=== PATIENT | female | born 1990 | race Caucasian/White ===

== ENCOUNTER 2024-05-22 18:46 | Emergency (ER) | payer BC, SELFPAY ==
[2024-05-22 18:48] VITALS: BP 91/72
[2024-05-22 20:20] VITALS: BMI 33.6
--- NOTE | 2024-05-22 20:20 | ED.GENMED ---
History of Present Illness
General
Chief Complaint: Abdominal Pain
Source: patient
Exam Limitations: none
Time Seen by Provider: 05/22/24 20:02
Nursing documentation reviewed up to this point in time: agreed with
History of Present Illness
History of Present Illness:
Patient is a 33-year-old female brought by for evaluation of abdominal pain. Patient started with abdominal pain at 1 PM after eating lunch. She did not feel well this morning when she woke up however. She was nauseous. With this
abdominal pain she does feel nauseous. She reports he is mildly constipated today but did move her bowels. She reports this feels different and abdominal pain the past. She was seen here JulySeptember 2023 all with complaints
abdominal pain/some constipation. She does admit to having a lot of reflux last week. She is never been evaluated by GI.
Past History
Past History
ED Past Medical History: Psychiatric (Depression. ) and Other ('gi issues', IUD)
ED Past Surgical History: None
Social History
Tobacco: Non-smoker
Alcohol: None
Drug: None
Personal:
Living: with family
Employment: Not employed
Family History
Family History: Other
Phy Exam
General Physical Exam
General Presentation: no apparent distress
General age: appears stated age
General Skin: warm and dry
General Habitus: normal
General Mental: alert
General Hydration: appears well hydrated
Gastrointestinal Exam
Gastrointestinal Exam: soft and other (mild epiastric tenderness no lower abd tenderness )
Neurological Exam
Neurological Exam: alert and oriented x3
Musculoskeletal Exam
Musculoskeletal Exam: full ROM
Skin Exam
Skin Exam: normal color and warm/dry
Psychiatric Exam
Psychiatric Exam: normal mood/affect
Course
Orders/Labs/Results
Orders:
Orders
05/22/24 18:52
Electrocardiogram (*1) Urgent
Reason for Study: Vertigo / Dizzy
EKG- Treatment ONCE
05/22/24 20:22
Mag Hydrox/Al Hydrox/Simeth [Maalox] 30 ml Phenobarb/Hyoscy/Atropine/Scop [] 10 ml PO NOW
05/22/24 20:25
Famotidine [Pepcid] 20 mg IV NOW STA
05/22/24 20:27
US Abdomen Complete/Upper Urgent
Comment:
Reason For Exam: upper abd pain
05/22/24 20:37
Test Result ONCE
05/22/24 20:39
Complete Blood Count/With Diff Urgent
Comprehensive Metabolic Panel Urgent
Lipase Urgent
05/22/24 20:42
Mag Hydrox/Al Hydrox/Simeth [Maalox] 30 ml .ROUTE .STK-MED ONE
Phenobarb/Hyoscy/Atropine/Scop [] 10 ml .ROUTE .STK-MED ONE
05/22/24 23:28
Ketorolac [Toradol] 15 mg .ROUTE .STK-MED ONE
05/22/24 23:31
Ketorolac [Toradol] 15 mg IM NOW STA
05/22/24 23:32
Ketorolac [Toradol] 15 mg IV NOW STA
Abnormal Lab Results
05/22/24
20:39
WBC 12.7 H 10^3/uL
(4.8-10.8)
MPV 10.7 H fL
(7.4-10.4)
Abs Immat Gran (auto) 0.1 H 10^3/uL
(0-0.05)
Absolute Neuts (auto) 10.8 H 10^3/uL
(1.4-6.5)
Neutrophils % 85.0 H %
(42.2-75.2)
Lymphocytes % 9.4 L %
(20.5-51.1)
05/22/24 20:39
05/22/24 20:39
Vital Signs
Initial and Last Documented VS:
Initial Vital Signs
Temp Pulse Resp BP Pulse Ox
98.4 F 87 18 91/72 100
05/22/24 18:48 05/22/24 18:48 05/22/24 18:48 05/22/24 18:48 05/22/24 18:48
Last Documented Vital Signs
Temp Pulse Resp BP Pulse Ox
98.4 F 100 20 100/62 98
05/22/24 18:48 05/22/24 23:56 05/22/24 23:56 05/22/24 23:56 05/23/24 00:13
Vibration Engineer consulted with Physician
Vibration Engineer consulted with physician?: Yes
Name of Physician Consulted: Ben
MDM/Problems Addressed
Differential Diagnosis Includes:
Not limited to reflux biliary colic pancreatitis gastritis
MDM/Problems Addressed:
Patient is a 33-year-old female who presents with abdominal pain. Patient has been evaluated this ER multiple times in the past and has had multiple CAT scans and ultrasounds. She felt that this was a little different. She did have a lot of
reflux last week and complains of upper abdominal pain and pain over the umbilicus. On exam she is tender in the epigastric region. She however presents in no acute distress and is well-appearing white count minimally elevated however afebrile
normal LFTs, normal lipase and unremarkable US. will hold off on ct as pt has had 9 ct scans since 2019.Pt did receive Pepcid and GI cocktail which did help then symptoms recurred. She was given a one-time dose of Toradol and feeling much better.
Case discussed ED physician will DC with Protonix with GI follow-up. Pt with IUD in place no lower abd pain abd soft nontender. sexually active with
*Radiology
Radiology exam reviewed: radiology read reviewed
*Pulse Oximetry
Patient hypoxic: no
*Critical Care Note
Total Time (30-74mins, 75-104mins- exclusive of procedures): Not Applicable
Data Reviewed
Review of Other/Old Records Reveals: Other (Prior ED visits ultrasound and CAT scans )
ED Attending Note
-
Portions of this chart may have been created with voice recognition software.� Occasional wrong word or��sound alike� substitutions may have occurred due to the inherent limitations of voice recognition software.
Discharge Plan
Departure
Patient Disposition: Home (Routine Discharge)
Date of Disposition: 05/22/24
Time of Disposition: 23:53
Patient with high blood pressure during this ER visit?: No
Condition: Fair
Covid-19: Not Applicable
Discharge Problem:
Abdominal pain
Instructions: Abdominal Pain
Prescriptions:
New
pantoprazole [Protonix] 20 mg tablet,delayed release (DR/EC)
20 mg PO BID Qty: 28 0RF
Referrals:
Loki Jacobson MD [Family Provider] -
Nelly Dawn MD [Active] -
Activity Restrictions/Additional Instructions:
As discussed a prescription for Protonix was sent to your pharmacy take as directed twice daily. Avoid spicy foods fatty foods acidic foods /orange juice/citrus/caffeine. Follow-up with GI as soon as possible. You should receive a phone call
from the office in the next several days or if you do not please give them a call. Return if any worse symptoms.
Interventions
Interventions:
*Risk Screen - Suicide Last Done: 05/22/24 18:49
*General Assessment Last Done: 05/22/24 18:49
*Neglect/Abuse Screening Last Done: 05/22/24 18:49
ED- Fall Risk Assessment Last Done: 05/22/24 20:54
*ED COVID-19 Vaccine History Last Done: 05/22/24 18:49
*Nursing Disposition Last Done: 05/23/24 00:13
BI-Qhijdm-Egkabarulb Assessment Last Done: 05/22/24 20:54
Discharge Date and Time
Discharge Date/Time: 05/23/24 00:14
Print Language: GREEK
[2024-05-22] MEDS: MAALOX 40 PO (20:45)
[2024-05-22] MEDS: PEPCID 20 MG IV (20:46)
[2024-05-22 20:47] LABS: % Basophils 0.3 % (0-2); % Eosinophils 0.2 % (0-6); % Immature Granulocytes 0.5 % (0-0.5); % Lymphocytes 9.4 % (20.5-51.1); % Monocytes 4.6 % (1.7-9.3); Absolute Immature Granulocytes 0.1 10^3/uL (0-0.05); Absolute Lymphocytes 1.2 10^3/uL (1.2-3.4); Absolute Monocytes 0.6 10^3/uL (0.1-0.6); Absolute Neutrophils 10.8 10^3/uL (1.4-6.5); Hematocrit 38.7 % (37.0-47.0); Hemoglobin 13.2 g/dL (12.0-16.0); Mean Corp Hgb Conc. 34.1 g/dL (33.0-37.0); Mean Corpuscular Hgb 29.7 pg (27.0-31.0); Mean Corpuscular Volume 87.2 fL (81.0-99.0); Mean Platelet Volume 10.7 fL (7.4-10.4); Nucleated Red Blood Cells % 0 %; Platelet Count 270 10^3/uL (130-400); Red Blood Cell Count 4.44 10^6/uL (4.20-5.40); Red Cell Dist. Width 13.9 % (11.5-14.5); White Blood Cell Count 12.7 10^3/uL (4.8-10.8)
[2024-05-22 20:54] VITALS: BP 106/68
[2024-05-22 21:07] LABS: ALT (SGPT) 13 U/L (0-35); AST (SGOT) 21 U/L (14-36); Albumin 4.7 g/dl (3.5-5.0); Alkaline Phosphatase 79 U/L (38-126); Blood Urea Nitrogen 13 mg/dl (7-17); Calcium 9.9 mg/dl (8.4-10.2); Carbon Dioxide 26 mmol/L (22-30); Chloride 103 mmol/L (98-107); Estimated Creatinine Clearance 105 ml/min; Glucose 99 mg/dl (70-99); Lipase 76 U/L (23-300); Potassium 4.7 mmol/L (3.5-5.1); Sodium 137 mmol/L (135-145); Total Bilirubin 0.6 mg/dl (0.2-1.3); Total Protein 7.6 g/dl (6.3-8.2); eGFR > 60.00
[2024-05-22 22:20] VITALS: BP 105/58
[2024-05-22 23:29] VITALS: BP 98/65
[2024-05-22] MEDS: TORADOL 15 MG IV (23:40)
[2024-05-22 23:56] VITALS: BP 100/62
== END 2024-05-23 00:14 | disposition home or self-care (01) ==
LOC: EMR 18:46
PROVIDERS: Nurse Practitioner; EMERGENCY PHYSICIAN Student in an Organized Health Care Education/Training Program; FAMILY PHYSICIAN Family Medicine
DX: R10.12 Left upper quadrant pain (principal); R11.0 Nausea; K59.00 Constipation, unspecified; Z97.5 Presence of (intrauterine) contraceptive device; F32.A Depression, unspecified
CPT/HCPCS: 99284; 96374; 96375; 76700; 80053; 83690; 85025; 93005

== ENCOUNTER 2024-07-20 04:16 | Emergency (ER) | payer BC, SELFPAY ==
[2024-07-20] VITALS (7 sets, daily range): BP systolic 89–109; BP diastolic 52–78
--- NOTE | 2024-07-20 05:11 | ED.GENMED ---
History of Present Illness
<Remington Mendez, DO - Last Filed: 07/25/24 06:03>
General
Chief Complaint: Abdominal Pain
Source: patient
Exam Limitations: none
Time Seen by Provider: 07/20/24 05:11
History of Present Illness
History of Present Illness:
See MDM
Past History
<Remington Mendez, DO - Last Filed: 07/25/24 06:03>
Past History
ED Past Medical History: Psychiatric (Depression. ) and Other ('gi issues', IUD)
ED Past Surgical History: None
Social History
Tobacco: Non-smoker
Alcohol: None
Drug: None
Personal:
Living: with family
Employment: Not employed
Family History
Family History: Other
Phy Exam
<Remington Mendez, DO - Last Filed: 07/25/24 06:03>
Physical Exam
Physical Exam:
See MDM
Course
<Remington Mendez, DO - Last Filed: 07/25/24 06:03>
Orders/Labs/Results
Orders:
Orders
07/20/24 05:00
Test Result ONCE
07/20/24 05:07
Complete Blood Count/With Diff Urgent
Comprehensive Metabolic Panel Urgent
HCG, Serum Qualitative Screen Urgent
Lipase Urgent
07/20/24 05:10
Ketorolac [Toradol] 30 mg .ROUTE .STK-MED ONE
Ondansetron Injectable [Zofran] 4 mg .ROUTE .STK-MED ONE
07/20/24 05:11
US Abdomen Complete/Upper Urgent
Comment:
Reason For Exam: RUQ pain
07/20/24 05:15
Ondansetron Injectable [Zofran] 4 mg IV NOW STA
07/20/24 05:17
Ketorolac [Toradol] 30 mg IV NOW STA
07/20/24 05:18
0.9% Sodium Chloride 1000 ml [Nss] 1,000 ml IV BOLUS
07/20/24 07:53
Morphine Sulfate 4 mg IV NOW STA
07/20/24 08:09
CT Abd/pelvis W Iv Cont Urgent
Comment:
Reason For Exam: periumbilical pain
Pantoprazole [Protonix IV] 40 mg IV NOW STA
Abnormal Lab Results
07/20/24
05:07
WBC 11.9 H 10^3/uL
(4.8-10.8)
MPV 11.5 H fL
(7.4-10.4)
Abs Immat Gran (auto) 0.1 H 10^3/uL
(0-0.05)
Absolute Neuts (auto) 9.4 H 10^3/uL
(1.4-6.5)
Neutrophils % 78.6 H %
(42.2-75.2)
Lymphocytes % 15.6 L %
(20.5-51.1)
Glucose 105 H mg/dl
(70-99)
Albumin 5.1 H g/dl
(3.5-5.0)
07/20/24 05:07
07/20/24 05:07
Vital Signs
Initial and Last Documented VS:
Initial Vital Signs
Temp Pulse Resp BP Pulse Ox
98.8 F 82 20 89/62 100
07/20/24 04:30 07/20/24 04:30 07/20/24 04:30 07/20/24 04:30 07/20/24 04:30
Last Documented Vital Signs
Temp Pulse Resp BP Pulse Ox
98.8 F 77 16 103/65 98
07/20/24 04:30 07/20/24 08:00 07/20/24 08:00 07/20/24 08:00 07/20/24 08:00
<Kam Ness, DO - Last Filed: 07/20/24 10:12>
Orders/Labs/Results
Orders:
Orders
07/20/24 05:00
Test Result ONCE
07/20/24 05:07
Complete Blood Count/With Diff Urgent
Comprehensive Metabolic Panel Urgent
HCG, Serum Qualitative Screen Urgent
Lipase Urgent
07/20/24 05:10
Ketorolac [Toradol] 30 mg .ROUTE .STK-MED ONE
Ondansetron Injectable [Zofran] 4 mg .ROUTE .STK-MED ONE
07/20/24 05:11
US Abdomen Complete/Upper Urgent
Comment:
Reason For Exam: RUQ pain
07/20/24 05:15
Ondansetron Injectable [Zofran] 4 mg IV NOW STA
07/20/24 05:17
Ketorolac [Toradol] 30 mg IV NOW STA
07/20/24 05:18
0.9% Sodium Chloride 1000 ml [Nss] 1,000 ml IV BOLUS
07/20/24 07:53
Morphine Sulfate 4 mg IV NOW STA
07/20/24 08:09
CT Abd/pelvis W Iv Cont Urgent
Comment:
Reason For Exam: periumbilical pain
Pantoprazole [Protonix IV] 40 mg IV NOW STA
Abnormal Lab Results
07/20/24
05:07
WBC 11.9 H 10^3/uL
(4.8-10.8)
MPV 11.5 H fL
(7.4-10.4)
Abs Immat Gran (auto) 0.1 H 10^3/uL
(0-0.05)
Absolute Neuts (auto) 9.4 H 10^3/uL
(1.4-6.5)
Neutrophils % 78.6 H %
(42.2-75.2)
Lymphocytes % 15.6 L %
(20.5-51.1)
Glucose 105 H mg/dl
(70-99)
Albumin 5.1 H g/dl
(3.5-5.0)
07/20/24 05:07
07/20/24 05:07
Vital Signs
Initial and Last Documented VS:
Initial Vital Signs
Temp Pulse Resp BP Pulse Ox
98.8 F 82 20 89/62 100
07/20/24 04:30 07/20/24 04:30 07/20/24 04:30 07/20/24 04:30 07/20/24 04:30
Last Documented Vital Signs
Temp Pulse Resp BP Pulse Ox
98.8 F 77 16 103/65 98
07/20/24 04:30 07/20/24 08:00 07/20/24 08:00 07/20/24 08:00 07/20/24 08:00
<Remington Mendez, DO - Last Filed: 07/25/24 06:03>
MDM/Problems Addressed
Differential Diagnosis Includes:
HPI and MDM Narrative:
33-year-old female presenting for evaluation of right upper quadrant pain. On exam, patient does have point tenderness to right upper quadrant. Given location of pain, will give Toradol and obtain ultrasound rule out gallbladder pathology
Physical exam
General: Uncomfortable
HEENT: protecting airway
Neck: appears supple
CV: No evidence of cyanosis
Resp: No accessory muscle use
Abd: Non-distended. Right upper quadrant tenderness
Extremities: No deformities
Neuro: alert
Psych: Normal affect
Skin: Intact
Problems Addressed including Acute and Chronic Conditions affecting care:
1. Right upper quadrant pain
Acuity: acute
Prognosis: stable
Details: Will give Toradol and obtain ultrasound
Updates
Ultrasound CT negative for acute pathology
Differential Diagnosis (but not limited to): Symptomatic cholelithiasis, acute calculus cholecystitis, gastritis
Testing considered: CT abdomen/pelvis
Drug therapy (if applicable): OTC meds, please see d/c instruction regarding Rx drugs
Amount and/or Complexity of Data Reviewed
Clinical info obtained from: Patient
External data reviewed: N/A
Labs I independently reviewed (but not limited to): elevated WBC
Radiology: The CT scan was personally and independently reviewed. In addition, official CT report reviewed.
Pulse Ox: not hypoxic
EKG independently reviewed: N/A
Erp Programmer: N/A
Critical Care: N/A
Risk of Complication:
Social Determinants of health: Good social support
Discussed with other providers: N/A
Escalation of Care includes Admit/Obs: After being observed in the Emergency Department, pt stable for discharge.
Occasional wrong word or 'sound a like' substitutions may have occurred due to the inherent limitations of voice recognition software. Read the chart carefully and recognize, using context, where substitutions have occurred.
<Remington Mendez, DO - Last Filed: 07/25/24 06:03>
*Critical Care Note
Total Time (30-74mins, 75-104mins- exclusive of procedures): Not Applicable
<Kam Ness, DO - Last Filed: 07/20/24 10:12>
Update Note
Update Note:
Patient reassessed and did have some persistent epigastric pain. Ultrasound negative so proceeded with CT. CT negative. Patient appears well. Will treat with PPI, bland diet and outpatient follow-up.
ED Attending Note
<Remington Mendez, DO - Last Filed: 07/25/24 06:03>
-
Portions of this chart may have been created with voice recognition software.� Occasional wrong word or��sound alike� substitutions may have occurred due to the inherent limitations of voice recognition software.
Discharge Plan
Departure
Patient Disposition: Home (Routine Discharge)
Date of Disposition: 07/20/24
Time of Disposition: 10:04
Patient with high blood pressure during this ER visit?: No
Discharge Problem:
Abdominal pain
Instructions: Abdominal Pain
Prescriptions:
New
pantoprazole [Protonix] 40 mg tablet,delayed release (DR/EC)
40 mg PO DAILY Qty: 30 0RF
Rx Instructions:
Please take 30 minutes prior to eating or drinking anything in the morning.
sucralfate [Carafate] 100 mg/mL suspension
10 ml PO QID Qty: 200 0RF
No Action
pantoprazole [Protonix] 20 mg tablet,delayed release (DR/EC)
20 mg PO BID Qty: 28 0RF
Referrals:
Loki Jacobson MD [Family Provider] -
Activity Restrictions/Additional Instructions:
Please stick to a bland diet drink plenty fluids. Return immediately for fevers, intractable vomiting, worsening pain or any other concerns. Please see your doctor in the next 3 days for follow-up and reevaluation.
Interventions
Interventions:
*Risk Screen - Suicide Last Done: 07/20/24 05:26
*General Assessment Last Done: 07/20/24 05:26
*Neglect/Abuse Screening Last Done: 07/20/24 05:26
ED- Fall Risk Assessment Last Done: 07/20/24 05:26
*ED COVID-19 Vaccine History Last Done: 07/20/24 05:26
*Nursing Disposition Last Done: 07/20/24 10:52
DN-Mdbocz-Qksarjrxah Assessment Last Done: 07/20/24 05:26
Discharge Date and Time
Discharge Date/Time: 07/20/24 10:53
Print Language: [place]LAND[place]
[2024-07-20 05:16] LABS: % Basophils 0.3 % (0-2); % Eosinophils 0.6 % (0-6); % Immature Granulocytes 0.5 % (0-0.5); % Lymphocytes 15.6 % (20.5-51.1); % Monocytes 4.4 % (1.7-9.3); % Neutrophils 78.6 % (42.2-75.2); Absolute Eosinophils 0.1 10^3/uL (0-0.7); Absolute Immature Granulocytes 0.1 10^3/uL (0-0.05); Absolute Lymphocytes 1.9 10^3/uL (1.2-3.4); Absolute Monocytes 0.5 10^3/uL (0.1-0.6); Absolute Neutrophils 9.4 10^3/uL (1.4-6.5); Hematocrit 41.4 % (37.0-47.0); Hemoglobin 13.9 g/dL (12.0-16.0); Mean Corp Hgb Conc. 33.6 g/dL (33.0-37.0); Mean Corpuscular Hgb 28.5 pg (27.0-31.0); Mean Platelet Volume 11.5 fL (7.4-10.4); Nucleated Red Blood Cells % 0 %; Platelet Count 227 10^3/uL (130-400); Red Blood Cell Count 4.87 10^6/uL (4.20-5.40); Red Cell Dist. Width 14.1 % (11.5-14.5); White Blood Cell Count 11.9 10^3/uL (4.8-10.8)
[2024-07-20] MEDS: ZOFRAN 4 MG IV (05:16)
[2024-07-20] MEDS: TORADOL 30 MG IV (05:17)
[2024-07-20] MEDS: NSS 1000 IV (05:18)
[2024-07-20 05:41] LABS: HCG, Serum Qualitative Screen Negative
[2024-07-20 05:57] LABS: ALT (SGPT) 16 U/L (0-35); AST (SGOT) 21 U/L (14-36); Albumin 5.1 g/dl (3.5-5.0); Alkaline Phosphatase 73 U/L (38-126); Blood Urea Nitrogen 8 mg/dl (7-17); Calcium 9.9 mg/dl (8.4-10.2); Carbon Dioxide 22 mmol/L (22-30); Chloride 102 mmol/L (98-107); Glucose 105 mg/dl (70-99); Lipase 83 U/L (23-300); Potassium 4.6 mmol/L (3.5-5.1); Sodium 142 mmol/L (135-145); Total Bilirubin 0.5 mg/dl (0.2-1.3); Total Protein 8.1 g/dl (6.3-8.2); eGFR > 60.00
[2024-07-20] MEDS: MORPHINE SULFATE 4 MG IV (08:10)
[2024-07-20] MEDS: PROTONIX IV 40 MG IV (08:48)
== END 2024-07-20 10:53 | disposition home or self-care (01) ==
LOC: EMR 04:16
PROVIDERS: Student in an Organized Health Care Education/Training Program; EMERGENCY PHYSICIAN Emergency Medicine; FAMILY PHYSICIAN Family Medicine
DX: R10.9 Unspecified abdominal pain (principal)
CPT/HCPCS: 99284; 96374; 96375; 96361; 74177; 76700; 80053; 83690; 84703; 85025; Q9967

== ENCOUNTER 2024-08-18 17:30 | Emergency (ER) | payer BC, SELFPAY ==
[2024-08-18 17:33] VITALS: BP 100/65
--- NOTE | 2024-08-18 18:28 | ED.GENMED ---
History of Present Illness
General
Chief Complaint: Abdominal Pain
Source: patient
Exam Limitations: none
Time Seen by Provider: 08/18/24 18:07
History of Present Illness
History of Present Illness:
34-year-old female presents complaining of right sided abdominal pain. Started this morning but was made worse after eating dinner today. She had similar pain about 3 weeks ago when she was seen in this emergency room. She had an ultrasound of
her abdomen as well as CT and the workup was negative. She notes slight nausea no vomiting. No flank pain or urinary symptoms. No fever. The pain is fairly constant to the right mid abdomen
Past History
Past History
ED Past Medical History: Psychiatric (Depression. ) and Other ('gi issues', IUD)
ED Past Surgical History: None
Social History
Tobacco: Non-smoker
Alcohol: None
Drug: None
Personal:
Living: with family
Employment: Not employed
Family History
Family History: Other
Phy Exam
Physical Exam
Physical Exam:
General: well appearing male, NAD
HEENT: Nc/AT
heart: RRR
Lungs; CTA
ABd: soft, tender to right mid abdomen, no guarding
Ext: no cyanosis or edema.
Course
Orders/Labs/Results
Orders:
Orders
08/18/24 18:23
0.9% Sodium Chloride 1000 ml [Nss] 1,000 ml IV BOLUS
Ketorolac [Toradol] 15 mg IV NOW STA
Ondansetron Injectable [Zofran] 4 mg IV NOW STA
08/18/24 18:24
Test Result ONCE
08/18/24 18:26
Complete Blood Count/With Diff Urgent
Comprehensive Metabolic Panel Urgent
HCG, Serum Qualitative Screen Urgent
Lipase Urgent
08/18/24 18:41
Famotidine [Pepcid] 20 mg IV NOW STA
08/18/24 19:25
Urinalysis Reflex To Culture Urgent
Date Specimen was Collected: 08/18/24
Time Specimen was Collected: 19:19
Urine Microscopic Reflex Cult Urgent
Urine Culture Urgent
BELLO Source: U
Specimen Description:
Date Specimen was Collected: 08/18/24
Time Specimen was Collected: 19:19
08/18/24 20:38
Mag Hydrox/Al Hydrox/Simeth [Maalox] 30 ml Phenobarb/Hyoscy/Atropine/Scop [] 10 ml Viscous Lidocaine 2% [Xylocaine Viscous Cup] 10 ml PO NOW
08/18/24 20:39
Phenobarb/Hyoscy/Atropine/Scop [] 10 ml .ROUTE .STK-MED ONE
08/18/24 20:40
Mag Hydrox/Al Hydrox/Simeth [Maalox] 30 ml .ROUTE .STK-MED ONE
Viscous Lidocaine 2% [Xylocaine Viscous Cup] 15 ml .ROUTE .STK-MED ONE
Abnormal Lab Results
08/18/24 08/18/24
18:26 19:25
WBC 12.4 H 10^3/uL
(4.8-10.8)
MPV 10.9 H fL
(7.4-10.4)
Absolute Neuts (auto) 10.3 H 10^3/uL
(1.4-6.5)
Neutrophils % 83.2 H %
(42.2-75.2)
Lymphocytes % 11.3 L %
(20.5-51.1)
Ur Occult Blood Reflex Trace A
(Negative)
Leukocyte Esterase Rfl 2+ A
(Negative)
08/18/24 18:26
08/18/24 18:26
Vital Signs
Initial and Last Documented VS:
Initial Vital Signs
Temp Pulse Resp BP Pulse Ox
99 F 90 22 100/65 99
08/18/24 17:33 08/18/24 17:33 08/18/24 17:33 08/18/24 17:33 08/18/24 17:33
Last Documented Vital Signs
Temp Pulse Resp BP Pulse Ox
99 F 90 22 96/66 99
08/18/24 17:33 08/18/24 17:33 08/18/24 17:33 08/18/24 20:00 08/18/24 20:00
MDM/Problems Addressed
Differential Diagnosis Includes:
Abdominal pain. Consider reflux versus constipation versus biliary colic versus renal colic.
Check labs. Hydrate and treat symptoms.
*Critical Care Note
Total Time (30-74mins, 75-104mins- exclusive of procedures): Not Applicable
Update Note
Update Note:
Patient reexamined multiple times now feeling better after GI cocktail. Reviewed her chart. She has had many CAT scans of her abdomen. I suspect reflux or IBS or constipation as a source of her pain no indication for emergent imaging at this
time. Stable for discharge. Recommended PPIs
ED Attending Note
-
Portions of this chart may have been created with voice recognition software.� Occasional wrong word or��sound alike� substitutions may have occurred due to the inherent limitations of voice recognition software.
Discharge Plan
Departure
Patient Disposition: Home (Routine Discharge)
Date of Disposition: 08/18/24
Time of Disposition: 21:21
Patient with high blood pressure during this ER visit?: No
Discharge Problem:
Abdominal pain
Instructions: Acid Reflux and GERD in Adults (DC), Abdominal Pain
Prescriptions:
No Action
pantoprazole [Protonix] 20 mg tablet,delayed release (DR/EC)
20 mg PO BID Qty: 28 0RF
pantoprazole [Protonix] 40 mg tablet,delayed release (DR/EC)
40 mg PO DAILY Qty: 30 0RF
Rx Instructions:
Please take 30 minutes prior to eating or drinking anything in the morning.
sucralfate [Carafate] 100 mg/mL suspension
10 ml PO QID Qty: 200 0RF
Referrals:
NONE,* [Family Provider] -
Activity Restrictions/Additional Instructions:
Use Prilosec [id number]. String plenty clear liquids. Return for worsening symptoms otherwise follow-up with your family doctor or GI physician
Interventions
Interventions:
*Risk Screen - Suicide Last Done: 08/18/24 17:33
*General Assessment Last Done: 08/18/24 17:33
*Neglect/Abuse Screening Last Done: 08/18/24 17:33
ED- Fall Risk Assessment Last Done: 08/18/24 18:00
*ED COVID-19 Vaccine History Last Done: 08/18/24 17:33
EH-Bsljfg-Ykbgrcqaft Assessment Last Done: 08/18/24 18:00
Discharge Date and Time
Print Language: [place]ET[place]ESE
[2024-08-18] MEDS: NSS 1000 IV (18:30)
[2024-08-18] MEDS: TORADOL 15 MG IV (18:31)
[2024-08-18] MEDS: ZOFRAN 4 MG IV (18:31)
[2024-08-18 18:37] VITALS: BP 113/78
[2024-08-18 18:47] LABS: % Basophils 0.3 % (0-2); % Eosinophils 0.4 % (0-6); % Immature Granulocytes 0.3 % (0-0.5); % Lymphocytes 11.3 % (20.5-51.1); % Monocytes 4.5 % (1.7-9.3); % Neutrophils 83.2 % (42.2-75.2); Absolute Eosinophils 0.1 10^3/uL (0-0.7); Absolute Lymphocytes 1.4 10^3/uL (1.2-3.4); Absolute Monocytes 0.6 10^3/uL (0.1-0.6); Absolute Neutrophils 10.3 10^3/uL (1.4-6.5); Hematocrit 39.2 % (37.0-47.0); Hemoglobin 13.2 g/dL (12.0-16.0); Mean Corp Hgb Conc. 33.7 g/dL (33.0-37.0); Mean Corpuscular Hgb 29.1 pg (27.0-31.0); Mean Corpuscular Volume 86.3 fL (81.0-99.0); Mean Platelet Volume 10.9 fL (7.4-10.4); Nucleated Red Blood Cells % 0 %; Platelet Count 247 10^3/uL (130-400); Red Blood Cell Count 4.54 10^6/uL (4.20-5.40); Red Cell Dist. Width 14.2 % (11.5-14.5); White Blood Cell Count 12.4 10^3/uL (4.8-10.8)
[2024-08-18] MEDS: PEPCID 20 MG IV (18:47)
[2024-08-18 19:00] VITALS: BP 111/70
[2024-08-18 19:03] LABS: HCG, Serum Qualitative Screen Negative
[2024-08-18 19:06] LABS: ALT (SGPT) 15 U/L (0-35); AST (SGOT) 19 U/L (14-36); Albumin 4.7 g/dl (3.5-5.0); Alkaline Phosphatase 67 U/L (38-126); Blood Urea Nitrogen 11 mg/dl (7-17); Calcium 9.6 mg/dl (8.4-10.2); Carbon Dioxide 28 mmol/L (22-30); Chloride 103 mmol/L (98-107); Glucose 74 mg/dl (70-99); Lipase 81 U/L (23-300); Potassium 4.1 mmol/L (3.5-5.1); Sodium 142 mmol/L (135-145); Total Bilirubin 0.2 mg/dl (0.2-1.3); Total Protein 7.5 g/dl (6.3-8.2); eGFR > 60.00
[2024-08-18 19:33] LABS: Urine Albumin Negative (Neg - Trace); Urine Bilirubin Negative (Negative); Urine Character Clear (Clear); Urine Color Yellow; Urine Glucose Negative (Negative); Urine Ketone Negative (Negative); Urine Leukocyte 2+ (Negative); Urine Nitrite Negative (Negative); Urine Occult Blood Trace (Negative); Urine Specific Gravity 1.015 (<1.030); Urine Urobilinogen Negative (Neg - 1+); Urine pH 6.5 (5.0-9.0)
[2024-08-18 19:46] LABS: Urine Squamous Cell >30 /LPF (Few)
[2024-08-18 19:47] LABS: Urine Red Blood Cell 0-2 /HPF (0-2)
[2024-08-18 20:00] VITALS: BP 96/66
[2024-08-18] MEDS: MAALOX 50 PO (20:41)
== END 2024-08-18 21:27 | disposition home or self-care (01) ==
LOC: EMR 17:30
PROVIDERS: Physician Assistant; EMERGENCY PHYSICIAN Emergency Medicine
DX: R10.9 Unspecified abdominal pain (principal)
CPT/HCPCS: 99283; 96374; 96375; 96361; 80053; 81003; 81015; 83690; 84703; 85025; 87086

== ENCOUNTER 2024-09-27 14:22 | Emergency (ER) | payer BC, SELFPAY ==
[2024-09-27 14:38] VITALS: BP 111/76
[2024-09-27 14:41] LABS: Glucose - Point of Care 82 mg/dl (70-99)
[2024-09-27 15:06] LABS: % Basophils 0.3 % (0-2); % Immature Granulocytes 0.4 % (0-0.5); % Lymphocytes 9.7 % (20.5-51.1); % Monocytes 3.4 % (1.7-9.3); % Neutrophils 86.2 % (42.2-75.2); Absolute Basophils 0.1 10^3/uL (0-0.2); Absolute Immature Granulocytes 0.1 10^3/uL (0-0.05); Absolute Lymphocytes 1.6 10^3/uL (1.2-3.4); Absolute Monocytes 0.5 10^3/uL (0.1-0.6); Absolute Neutrophils 13.8 10^3/uL (1.4-6.5); Hematocrit 38.7 % (37.0-47.0); Hemoglobin 12.9 g/dL (12.0-16.0); Mean Corp Hgb Conc. 33.3 g/dL (33.0-37.0); Mean Corpuscular Hgb 28.6 pg (27.0-31.0); Mean Corpuscular Volume 85.8 fL (81.0-99.0); Mean Platelet Volume 11.3 fL (7.4-10.4); Nucleated Red Blood Cells % 0 %; Platelet Count 255 10^3/uL (130-400); Red Blood Cell Count 4.51 10^6/uL (4.20-5.40); Red Cell Dist. Width 13.4 % (11.5-14.5); White Blood Cell Count 16.1 10^3/uL (4.8-10.8)
[2024-09-27 15:15] LABS: HCG, Serum Qualitative Screen Negative
[2024-09-27 15:20] LABS: ALT (SGPT) 17 U/L (0-35); AST (SGOT) 18 U/L (14-36); Albumin 4.5 g/dl (3.5-5.0); Alkaline Phosphatase 82 U/L (38-126); Blood Urea Nitrogen 9 mg/dl (7-17); Calcium 9.2 mg/dl (8.4-10.2); Carbon Dioxide 26 mmol/L (22-30); Chloride 100 mmol/L (98-107); Glucose 89 mg/dl (70-99); Lipase 69 U/L (23-300); Potassium 4.1 mmol/L (3.5-5.1); Sodium 133 mmol/L (135-145); Total Bilirubin 0.6 mg/dl (0.2-1.3); Total Protein 7.5 g/dl (6.3-8.2); eGFR > 60.00
--- NOTE | 2024-09-27 16:43 | ED.GENMED ---
History of Present Illness
General
Chief Complaint: Abdominal Symptoms
Source: patient
Exam Limitations: none
Time Seen by Provider: 09/27/24 16:37
History of Present Illness
History of Present Illness:
34-year-old female with history of abdominal pain presents with abdominal pain starting yesterday. Feels similar to her prior episodes of pain. She was seen here a month ago for the same. She has had multiple imaging studies of her abdomen. She
had a normal bowel movement yesterday. She denies vomiting or fever. She has yet to see a GI doctor.
Past History
Past History
ED Past Medical History: Psychiatric (Depression. ) and Other ('gi issues', IUD)
ED Past Surgical History: None
Social History
Tobacco: Non-smoker
Alcohol: None
Drug: None
Personal:
Living: with family
Employment: Not employed
Family History
Family History: Other
Phy Exam
Physical Exam
Physical Exam:
General: Well-appearing female no acute respiratory distress
HEENT: Normocephalic atraumatic heart: Regular rate and rhythm no murmurs lungs: Clear no wheeze abdomen: Soft diffusely tender no guarding rebound normal bowel sounds nondistended
Extremities: No cyanosis
Course
Orders/Labs/Results
Orders:
Orders
09/27/24 14:42
Test Result ONCE
09/27/24 14:56
Complete Blood Count/With Diff Urgent
Comprehensive Metabolic Panel Urgent
HCG, Serum Qualitative Screen Urgent
Lipase Urgent
09/27/24 16:43
Famotidine [Pepcid] 20 mg IV NOW STA
Ketorolac [Toradol] 15 mg IV NOW STA
Mag Hydrox/Al Hydrox/Simeth [Maalox] 30 ml Phenobarb/Hyoscy/Atropine/Scop [] 10 ml Viscous Lidocaine 2% [Xylocaine Viscous Cup] 10 ml PO NOW
09/27/24 16:55
Mag Hydrox/Al Hydrox/Simeth [Maalox] 30 ml .ROUTE .STK-MED ONE
Phenobarb/Hyoscy/Atropine/Scop [] 10 ml .ROUTE .STK-MED ONE
Viscous Lidocaine 2% [Xylocaine Viscous Cup] 15 ml .ROUTE .STK-MED ONE
09/27/24 18:50
Urinalysis Reflex To Culture Urgent
Date Specimen was Collected: 09/27/24
Time Specimen was Collected: 18:45
Urine Microscopic Reflex Cult Urgent
Urine Culture Urgent
BELLO Source: U
Specimen Description:
Date Specimen was Collected: 09/27/24
Time Specimen was Collected: 18:45
Abnormal Lab Results
09/27/24 09/27/24
14:56 18:50
WBC 16.1 H 10^3/uL
(4.8-10.8)
MPV 11.3 H fL
(7.4-10.4)
Abs Immat Gran (auto) 0.1 H 10^3/uL
(0-0.05)
Absolute Neuts (auto) 13.8 H 10^3/uL
(1.4-6.5)
Neutrophils % 86.2 H %
(42.2-75.2)
Lymphocytes % 9.7 L %
(20.5-51.1)
Sodium 133 L mmol/L
(135-145)
Ur Occult Blood Reflex 2+ A
(Negative)
Leukocyte Esterase Rfl 1+ A
(Negative)
Urine RBC 3-6 A /HPF
(0-2)
09/27/24 14:56
09/27/24 14:56
Vital Signs
Initial and Last Documented VS:
Initial Vital Signs
Temp Pulse Resp BP Pulse Ox
99.5 F 110 20 111/76 97
09/27/24 14:38 09/27/24 14:38 09/27/24 14:38 09/27/24 14:38 09/27/24 14:38
Last Documented Vital Signs
Temp Pulse Resp BP Pulse Ox
99.5 F 82 18 106/86 97
09/27/24 14:38 09/27/24 18:45 09/27/24 18:45 09/27/24 17:00 09/27/24 17:30
MDM/Problems Addressed
Differential Diagnosis Includes:
Recurrent abdominal pain. No localizing discomfort on exam. She has had multiple ultrasounds and CTs of her abdomen. The workups have been negative. Will try treating symptoms here.
*Critical Care Note
Total Time (30-74mins, 75-104mins- exclusive of procedures): Not Applicable
Update Note
Update Note:
Patient reexamined feeling slightly improved with medicine. Still with some lower abdominal pain. Explained to her that her white blood cell count is high which she typically is and in the setting of lower abdominal pain we can offer CAT scan for
further imaging. She has had multiple CAT scans in the past. She declined that this pain feels very similar to what she has had in the past. She will follow-up with GI. Return precautions were given.
ED Attending Note
-
Portions of this chart may have been created with voice recognition software.� Occasional wrong word or��sound alike� substitutions may have occurred due to the inherent limitations of voice recognition software.
Discharge Plan
Departure
Patient Disposition: Home (Routine Discharge)
Date of Disposition: 09/27/24
Time of Disposition: 19:46
Patient with high blood pressure during this ER visit?: No
Discharge Problem:
Abdominal pain
Instructions: Abdominal Pain
Prescriptions:
New
pantoprazole [Protonix] 40 mg tablet,delayed release (DR/EC)
40 mg PO DAILY Qty: 30 0RF
No Action
pantoprazole [Protonix] 20 mg tablet,delayed release (DR/EC)
20 mg PO BID Qty: 28 0RF
pantoprazole [Protonix] 40 mg tablet,delayed release (DR/EC)
40 mg PO DAILY Qty: 30 0RF
Rx Instructions:
Please take 30 minutes prior to eating or drinking anything in the morning.
sucralfate [Carafate] 100 mg/mL suspension
10 ml PO QID Qty: 200 0RF
Referrals:
Chris Blank MD [Active] -
Gilles Lambert MD [Family Provider] -
Activity Restrictions/Additional Instructions:
Take Protonix as directed. Eat a bland diet. Return here for worsening symptoms otherwise follow-up with GI
Interventions
Interventions:
*Risk Screen - Suicide Last Done: 09/27/24 14:38
*General Assessment Last Done: 09/27/24 16:58
*Neglect/Abuse Screening Last Done: 09/27/24 14:38
ED- Fall Risk Assessment Last Done: 09/27/24 17:33
*ED COVID-19 Vaccine History Last Done: 09/27/24 14:38
[facility]Kn[facility]kmk[facility] Assessment Last Done: 09/27/24 17:33
Discharge Date and Time
Print Language: BENGALI
[2024-09-27 16:58] VITALS: BMI 30.7
[2024-09-27 17:00] VITALS: BP 106/86
[2024-09-27] MEDS: PEPCID 20 MG IV (17:04)
[2024-09-27] MEDS: MAALOX 50 PO (17:05)
[2024-09-27] MEDS: TORADOL 15 MG IV (17:05)
[2024-09-27 18:00] VITALS: BP 112/68
[2024-09-27 18:56] LABS: Urine Albumin Negative (Neg - Trace); Urine Bilirubin Negative (Negative); Urine Character Clear (Clear); Urine Color Yellow; Urine Glucose Negative (Negative); Urine Ketone Negative (Negative); Urine Leukocyte 1+ (Negative); Urine Nitrite Negative (Negative); Urine Occult Blood 2+ (Negative); Urine Specific Gravity 1.005 (<1.030); Urine Urobilinogen Negative (Neg - 1+)
[2024-09-27 19:00] VITALS: BP 109/76
[2024-09-27 19:07] LABS: Urine Squamous Cell 16-20 /LPF (Few)
== END 2024-09-27 20:14 | disposition home or self-care (01) ==
LOC: EMR 14:22
PROVIDERS: Physician Assistant; EMERGENCY PHYSICIAN Emergency Medicine
DX: R10.30 Lower abdominal pain, unspecified (principal); F32.A Depression, unspecified; Z97.5 Presence of (intrauterine) contraceptive device
CPT/HCPCS: 99284; 96374; 96375; 80053; 81003; 81015; 82962; 83690; 84703; 85025; 87086

== ENCOUNTER 2025-01-08 16:23 | Emergency (ER) | payer BC, SELFPAY ==
[2025-01-08 16:26] VITALS: BP 122/75
--- NOTE | 2025-01-08 17:40 | ED.GENMED ---
History of Present Illness
General
Chief Complaint: Abdominal Pain
Source: patient
Exam Limitations: none
Time Seen by Provider: 01/08/25 17:19
Nursing documentation reviewed up to this point in time: agreed with
History of Present Illness
History of Present Illness:
34 yo female evaluated here numerous times for abdominal pain (10 CT's, 5 US's since 2020, all unremarkable), presents for 'burning like indigestion' pain pointing up and down esophagus area since yesterday a.m., and RUQ pain that started 10 a.m.
today.
She has not taken her Pantoprazole past 3 weeks, took one yesterday with some relief. States she vomited once this a.m. Feels nauseous. Moving bowels regularly, denies UTI symptoms. LMP 7 days ago.
Has upper endoscopy scheduled in February at [facility].
Past History
Past History
ED Past Medical History: Psychiatric (Depression. ) and Other ('gi issues', IUD)
ED Past Surgical History: None
Social History
Tobacco: Non-smoker
Alcohol: None
Drug: None
Personal:
Living: with family
Employment: Not employed
Family History
Family History: Other
Review of Systems
Review of Systems
Allergies reviewed?: Yes
All Other Systems: ROS reviewed and negative except as documented in HPI and ROS
Constitutional: Denies fever
Respiratory: Denies trouble breathing
Cardiac: Denies chest pain
ABD/GI: Reports abdominal pain and nausea; Denies vomiting, diarrhea, constipated, bloody stools, black stools or anorexia
: Denies dysuria, frequency, flank pain, difficulty voiding or urgency
Musculoskeletal: Reports no symptoms
Skin: Reports no symptoms
Neurological: Reports no symptoms
Phy Exam
Physical Exam
Physical Exam:
GENERAL: No acute distress. A&Ox3.
CONSTITUTIONAL: Afebrile.
EYES: clear, conjunctivae normal
ENMT: moist mucus membranes, Pharynx nl
RESPIRATORY: Regular respirations, nonlabored, lungs clear.
CARDIOVASCULAR: Regular rate and rhythm, no murmurs, no rubs.
GI: Soft, tender RUQ, normal BS
MUSCULOSKELETAL: Moves with ease. Well perfused.
SKIN: Warm, dry, pink
PSYCH: Depressed mood and affect. Well kept, interactive and appropriate
NEUROLOGIC: Awake, alert and oriented. No focal neurological deficits
Course
Orders/Labs/Results
Orders:
Orders
01/08/25 17:39
Mag Hydrox/Al Hydrox/Simeth [Maalox] 30 ml Phenobarb/Hyoscy/Atropine/Scop [] 10 ml Viscous Lidocaine 2% [Xylocaine Viscous Cup] 10 ml PO NOW
Test Result ONCE
01/08/25 17:40
US Abdomen Complete/Upper Urgent
Comment:
Reason For Exam: RUQ pain
01/08/25 17:43
Ondansetron Injectable [Zofran] 4 mg IV NOW STA
01/08/25 17:46
Mag Hydrox/Al Hydrox/Simeth [Maalox] 30 ml .ROUTE .STK-MED ONE
Phenobarb/Hyoscy/Atropine/Scop [] 10 ml .ROUTE .STK-MED ONE
Viscous Lidocaine 2% [Xylocaine Viscous Cup] 15 ml .ROUTE .STK-MED ONE
01/08/25 18:06
Complete Blood Count/With Diff Urgent
Comprehensive Metabolic Panel Urgent
HCG, Serum Qualitative Screen Urgent
Lipase Urgent
01/08/25 19:02
Acetaminophen [Tylenol] 1,000 mg .ROUTE .STK-MED ONE
01/08/25 19:10
Acetaminophen [Tylenol] 1,000 mg PO NOW STA
01/08/25 19:15
Urinalysis Reflex To Culture Urgent
Date Specimen was Collected: 01/08/25
Time Specimen was Collected: 19:12
Urine Microscopic Reflex Cult Urgent
Abnormal Lab Results
01/08/25 01/08/25
18:06 19:15
WBC 11.0 H 10^3/uL
(4.8-10.8)
MPV 11.4 H fL
(7.4-10.4)
Absolute Neuts (auto) 7.0 H 10^3/uL
(1.4-6.5)
Ur Occult Blood Reflex 1+ A
(Negative)
01/08/25 18:06
01/08/25 18:06
Vital Signs
Initial and Last Documented VS:
Initial Vital Signs
Temp Pulse Resp BP Pulse Ox
97.8 F 66 18 122/75 100
01/08/25 16:26 01/08/25 16:26 01/08/25 16:26 01/08/25 16:26 01/08/25 16:26
Last Documented Vital Signs
Temp Pulse Resp BP Pulse Ox
97.8 F 80 14 108/78 98
01/08/25 16:26 01/08/25 18:00 01/08/25 18:00 01/08/25 18:32 01/08/25 18:45
MDM/Problems Addressed
Differential Diagnosis Includes:
cholecystitis, biliary colic, GERD
MDM/Problems Addressed:
34 yo female evaluated here numerous times for abdominal pain (10 CT's, 5 US's since 2020, all unremarkable), presents for 'burning like indigestion' pain pointing up and down esophagus area since yesterday a.m., and RUQ pain that started 10 a.m.
today.
She has not taken her Pantoprazole past 3 weeks, took one yesterday with some relief. States she vomited once this a.m. Feels nauseous. Moving bowels regularly, denies UTI symptoms. LMP 7 days ago.
Has upper endoscopy scheduled in February at [facility].
CBC, CMP unremarkable
U/A normal
US upper abdomen radiology report read: IMPRESSION:
No sonographic evidence of acute cholecystitis, cholelithiasis or biliary duct dilation.
Pt ambulated out with normal gait at discharge
*Critical Care Note
Total Time (30-74mins, 75-104mins- exclusive of procedures): Not Applicable
ED Attending Note
-
Portions of this chart may have been created with voice recognition software.� Occasional wrong word or��sound alike� substitutions may have occurred due to the inherent limitations of voice recognition software.
Discharge Plan
Departure
Patient Disposition: Home (Routine Discharge)
Date of Disposition: 01/08/25
Time of Disposition: 19:32
Patient with high blood pressure during this ER visit?: No
Condition: Fair
Discharge Problem:
Abdominal pain, Chronic GERD
Instructions: Acid Reflux and GERD in Adults (DC), Abdominal Pain
Prescriptions:
New
sucralfate [Carafate] 1 gram tablet
1 g PO ACHS Qty: 60 0RF
No Action
pantoprazole [Protonix] 20 mg tablet,delayed release (DR/EC)
20 mg PO BID Qty: 28 0RF
pantoprazole [Protonix] 40 mg tablet,delayed release (DR/EC)
40 mg PO DAILY Qty: 30 0RF
Rx Instructions:
Please take 30 minutes prior to eating or drinking anything in the morning.
sucralfate [Carafate] 100 mg/mL suspension
10 ml PO QID Qty: 200 0RF
pantoprazole [Protonix] 40 mg tablet,delayed release (DR/EC)
40 mg PO DAILY Qty: 30 0RF
Referrals:
Your, GI doctor at [facility] [Other] - Keep scheduled appt
UNKNOWN - PT DOES,NOT KNOW [Unknown Provider] -
Activity Restrictions/Additional Instructions:
As we discussed, your workup here today shows nothing worrisome.
I sent a prescription to your pharmacy for the Carafate.
Take your Pantoprazole daily as ordered and keep your Endoscopy appointment in February
Tylenol as needed for pain.
Interventions
Interventions:
*Risk Screen - Suicide Last Done: 01/08/25 20:15
*Neglect/Abuse Screening Last Done: 01/08/25 16:26
*ED- Fall Risk Assessment Last Done: 01/08/25 20:15
*ED COVID-19 Vaccine History Last Done: 01/08/25 16:26
*Nursing Disposition Last Done: 01/08/25 20:15
[facility]-U[facility]-Yizypkq[facility] Assessment Last Done: 01/08/25 18:30
Discharge Date and Time
Discharge Date/Time: 01/08/25 20:26
Print Language: TRISTANIAN
[2025-01-08] MEDS: ZOFRAN 4 MG IV (18:04)
[2025-01-08] MEDS: MAALOX 45 PO (18:04)
[2025-01-08 18:15] LABS: % Basophils 0.6 % (0-2); % Eosinophils 0.8 % (0-6); % Immature Granulocytes 0.3 % (0-0.5); % Lymphocytes 30.1 % (20.5-51.1); % Monocytes 4.6 % (1.7-9.3); % Neutrophils 63.6 % (42.2-75.2); Absolute Basophils 0.1 10^3/uL (0-0.2); Absolute Eosinophils 0.1 10^3/uL (0-0.7); Absolute Lymphocytes 3.3 10^3/uL (1.2-3.4); Absolute Monocytes 0.5 10^3/uL (0.1-0.6); Hematocrit 37.4 % (37.0-47.0); Hemoglobin 12.4 g/dL (12.0-16.0); Mean Corp Hgb Conc. 33.2 g/dL (33.0-37.0); Mean Corpuscular Hgb 28.9 pg (27.0-31.0); Mean Corpuscular Volume 87.2 fL (81.0-99.0); Mean Platelet Volume 11.4 fL (7.4-10.4); Nucleated Red Blood Cells % 0 %; Platelet Count 272 10^3/uL (130-400); Red Blood Cell Count 4.29 10^6/uL (4.20-5.40); Red Cell Dist. Width 13.5 % (11.5-14.5)
[2025-01-08 18:25] LABS: HCG, Serum Qualitative Screen Negative
[2025-01-08 18:28] LABS: ALT (SGPT) 15 U/L (0-35); AST (SGOT) 19 U/L (14-36); Albumin 4.2 g/dl (3.5-5.0); Alkaline Phosphatase 70 U/L (38-126); Blood Urea Nitrogen 10 mg/dl (7-17); Calcium 9.4 mg/dl (8.4-10.2); Carbon Dioxide 29 mmol/L (22-30); Chloride 104 mmol/L (98-107); Glucose 84 mg/dl (70-99); Lipase 71 U/L (23-300); Potassium 4.5 mmol/L (3.5-5.1); Sodium 139 mmol/L (135-145); Total Bilirubin 0.4 mg/dl (0.2-1.3); Total Protein 7.5 g/dl (6.3-8.2); eGFR > 60.00
[2025-01-08 18:32] VITALS: BP 108/78
[2025-01-08 18:44] VITALS: BMI 27.9
[2025-01-08] MEDS: TYLENOL 1000 MG PO (19:10)
[2025-01-08 19:22] LABS: Urine Albumin Negative (Neg - Trace); Urine Bilirubin Negative (Negative); Urine Character Clear (Clear); Urine Color Yellow; Urine Glucose Negative (Negative); Urine Ketone Negative (Negative); Urine Leukocyte Negative (Negative); Urine Nitrite Negative (Negative); Urine Occult Blood 1+ (Negative); Urine Urobilinogen Negative (Neg - 1+)
[2025-01-08 19:41] LABS: Urine Red Blood Cell 0-2 /HPF (0-2); Urine White Cell 0-2 /HPF (0-5)
== END 2025-01-08 20:26 | disposition home or self-care (01) ==
LOC: EMR 16:23
PROVIDERS: Registered Nurse; EMERGENCY PHYSICIAN Emergency Medicine; FAMILY PHYSICIAN Family Medicine
DX: R10.9 Unspecified abdominal pain (principal); G89.29 Other chronic pain; K21.9 Gastro-esophageal reflux disease without esophagitis; R11.0 Nausea
CPT/HCPCS: 99284; 96374; 76700; 80053; 81003; 81015; 83690; 84703; 85025

== ENCOUNTER 2025-08-31 10:29 | Emergency (ER) | payer BC, SELFPAY ==
[2025-08-31 10:34] VITALS: BP 106/65
[2025-08-31] MEDS: DELTASONE 50 MG PO (12:06)
[2025-08-31] MEDS: ULTRAM 50 MG PO (12:06)
--- NOTE | 2025-08-31 13:37 | ED.MUSCINJ ---
HPI-Injury
General
Chief Complaint: Extremity Pain (non-traumatic)
Source: patient and spouse
Exam Limitations: none
Time Seen by Provider: 08/31/25 11:32
Nursing documentation reviewed up to this point in time: agreed with
History of Present Illness-Injury
Initial Injury comments:
35-year-old female with history of chronic intermittent abdominal pain, depression presents for right hip pain that began suddenly last night around 10 oclock. The onset of the current symptoms was gradual. No recent aggravating activities such as
cleaning, yard work, exercise, bending, pushing, pulling, or carrying. Took Tylenol with no relief. There is no associated fever. The pain is significant with any movement and weight bearing. No other muscle/joint aches or systemic symptoms like
abdominal pain, back pain or urinary or bowel issues were reported.
Past History
Past History
ED Past Medical History: Psychiatric (Depression. ) and Other ('gi issues', IUD)
ED Past Surgical History: None
Social History
Tobacco: Non-smoker
Alcohol: None
Drug: None
Personal:
Living: with family
Employment: Not employed
Family History
Family History: Other
Review of Systems
Review of Systems
Allergies reviewed?: Yes
All Other Systems: ROS reviewed and negative except as documented in HPI and ROS
Phy Exam
Physical Exam
Physical Exam:
GENERAL: No acute distress. A&Ox3.
CONSTITUTIONAL: Afebrile.
EYES: clear, conjunctivae normal
ENMT: moist mucus membranes
RESPIRATORY: Regular respirations, nonlabored, lungs clear.
CARDIOVASCULAR: Regular rate and rhythm, no murmurs, no rubs.
GI: Soft, nontender, normal BS
MUSCULOSKELETAL: Significant tenderness to palpation over lateral Right hip/greater trochanter. Limited ROM due to pain. Distal n/v intact. Foot warm, brisk capillary refill. Well perfused.
SKIN: Warm, dry, pink
PSYCH: Normal mood and affect. Well kept, interactive and appropriate
NEUROLOGIC: Awake, alert and oriented. No focal neurological deficits
Injury Course
Orders/Labs/Results
Orders:
Orders
08/31/25 11:49
Prednisone [Deltasone] 50 mg PO NOW STA
Tramadol HCl [Ultram] 50 mg PO NOW STA
08/31/25 11:50
Hip, Right 2-3 Views [CR Hip - RT w/wo Pel 2-3 Vw*] Urgent
Comment: No recollection of overuse or injury
Reason For Exam: signif pain lateral hip
Include a pelvis x-ray?: No
MDM/Problems Addressed
Differential Diagnosis Includes:
Bursitis, osteoarthritis, septic arthritis, tendinitis, sprain or strain
MDM/Problems Addressed:
35-year-old female with history of chronic intermittent abdominal pain, depression presents for right hip pain that began suddenly last night around 10 oclock. The onset of the current symptoms was gradual. No recent aggravating activities such as
cleaning, yard work, exercise, bending, pushing, pulling, or carrying. Took Tylenol with no relief. There is no associated fever. The pain is significant only in lateral aspect of the hip, worse with any movement and weight bearing. No other
muscle/joint aches or systemic symptoms like abdominal pain, back pain or urinary or bowel issues were reported.
No infectious symptoms, no indication for blood work
X-ray right hip reveals no acute abnormality.
1:50 p.m.
After pain med and steroid, pt states she is feeling better, gets OOB slowly and able to ambulate with limp independently
Rx for Steroid taper sent to her pharmacy
Orthopedic f/u if needed. She also states she can see her PCP as needed
Discharged via wheelchair.
*Pulse Oximetry
SaO2: 98
Oxygen Mode of Delivery: Room air
Patient hypoxic: not evaluated
*Critical Care Note
Total Time (30-74mins, 75-104mins- exclusive of procedures): Not Applicable
ED Attending Note
-
Portions of this chart may have been created with voice recognition software.� Occasional wrong word or��sound alike� substitutions may have occurred due to the inherent limitations of voice recognition software.
Discharge Plan
Departure
Patient Disposition: Home (Routine Discharge)
Date of Disposition: 08/31/25
Time of Disposition: 14:03
Patient with high blood pressure during this ER visit?: No
Condition: Good
Discharge Problem:
Trochanteric bursitis of right hip
Instructions: Hip pain in adults, Hip Bursitis Exercises, Bursitis - ED (DC)
Prescriptions:
New
prednisone 10 mg Tablet
See Rx Instructions .ROUTE .COMPLEX Qty: 30 0RF
Rx Instructions:
Take By Mouth:
40 mg daily x3 days, 30 mg daily x3 days,
20 mg daily x3 days, 10 mg daily x3 days.
No Action
pantoprazole [Protonix] 20 mg tablet,delayed release (DR/EC)
20 mg PO BID Qty: 28 0RF
pantoprazole [Protonix] 40 mg tablet,delayed release (DR/EC)
40 mg PO DAILY Qty: 30 0RF
Rx Instructions:
Please take 30 minutes prior to eating or drinking anything in the morning.
sucralfate [Carafate] 100 mg/mL suspension
10 ml PO QID Qty: 200 0RF
pantoprazole [Protonix] 40 mg tablet,delayed release (DR/EC)
40 mg PO DAILY Qty: 30 0RF
sucralfate [Carafate] 1 gram tablet
1 g PO ACHS Qty: 60 0RF
Referrals:
Jimbo Duke MD [Active, Orthopedics] - As needed
Loki Jacobson MD [Family Provider, Family Practice] - As needed
Activity Restrictions/Additional Instructions:
As we discussed, your x-ray is normal
You most likely have bursitis which is an inflammation around the hip area. This may take several days to 2 to 3 weeks to improve
I sent a prescription to your pharmacy for prednisone taper, start it tomorrow as you were given a dose here today.
It may take 2-3 days for the steroid to kick in.
Ibuprofen 600 mg (with food) or Tylenol 650 mg every 6 hours as needed for pain.
See your doctor or the orthopedic doctor if you are not a lot better in 5 days or not 100% better in 3 weeks.
Interventions
Interventions:
*Risk Screen - Suicide Last Done: 08/31/25 10:34
*General Assessment Last Done: 08/31/25 11:04
*Neglect/Abuse Screening Last Done: 08/31/25 10:34
*ED- Fall Risk Assessment Last Done: 08/31/25 11:04
*Nursing Disposition Last Done: 08/31/25 14:10
ED-Skin Assessment Last Done: 08/31/25 11:04
ED-Peripheral Vascular Assessment Last Done: 08/31/25 11:04
ED-Musculoskeletal Assessment Last Done: 08/31/25 11:04
Discharge Date and Time
Discharge Date/Time: 08/31/25 14:11
Print Language: GREEK
== END 2025-08-31 14:11 | disposition home or self-care (01) ==
LOC: EMR 10:29
PROVIDERS: EMERGENCY PHYSICIAN Emergency Medicine; FAMILY PHYSICIAN Family Medicine
DX: M70.61 Trochanteric bursitis, right hip (principal)
CPT/HCPCS: 99283; 73502